=== PATIENT | male | born 1945 | race Caucasian/White ===

== ENCOUNTER 2022-09-11 09:46 | Outpatient (CLI) | payer MEDICARE, OTHER ==
[~2022-09-11] VITALS: Ht 172.7 cm; Wt 93.0 kg
[2022-09-11 10:26] LABS: BASOPHILS # (AUTO) 0.1 X10'3 (0-0.2); EOSINOPHILS # (AUTO) 0.1 X10'3 (0-0.9); HEMATOCRIT 39.6 % (42.0-52.0); LYMPHOCYTES # (AUTO) 1.4 X10'3 (1.1-4.8); LYMPHOCYTES % (AUTO) 19.4 % (21-51); MEAN CORPUSCULAR HGB CONC 32.8 g/dL (33.0-36.5); MEAN CORPUSCULAR VOLUME 91.4 FL (78-98); MEAN PLATELET VOLUME 7.7 FL (7.4-10.4); MONOCYTES # (AUTO) 0.5 X10'3 (0-0.9); MONOCYTES % (AUTO) 6.6 % (2-12); NEUTROPHILS # (AUTO) 5.2 X10'3 (1.8-7.7); PLATELET COUNT 216 X10'3 (140-440); RED BLOOD COUNT 4.34 X10'6 (4.70-6.10); RED CELL DISTRIBUTION WIDTH 15.2 % (11.5-14.5); WHITE BLOOD COUNT 7.3 X10'3 (4.5-11.0)
[2022-09-11 10:27] LABS: APTT 42 SECONDS (22-32)
[2022-09-11 10:29] LABS: ALANINE AMINOTRANSFERASE 21 U/L (12-78); ALBUMIN 3.9 G/DL (3.4-5.0); ALBUMIN/GLOBULIN RATIO 0.9 (1.1-1.5); ALKALINE PHOSPHATASE 135 IU/L (46-116); ASPARTATE AMINO TRANSFERASE 21 U/L (10-37); BILIRUBIN,TOTAL 0.6 MG/DL (0.1-1.0); BLOOD UREA NITROGEN 14 MG/DL (7-18); BUN/CREATININE RATIO 15.1 (5.4-32.0); CREATININE 0.93 MG/DL (0.60-1.10); GLUCOSE 157 MG/DL (70-104); TOTAL CARBON DIOXIDE 27.8 MMOL/L (24-32); TOTAL PROTEIN 8.4 G/DL (6.4-8.2); eGFR 79 ML/MIN
[2022-09-11] MEDS ORDERED: albuterol 2.5 MG/3 ML nebule NEB ONE (10:50)
[2022-09-11 10:53] LABS: ABG BASE EXCESS -0.2 mmol/L (-2.0-2.0); ABG HCO3 24.2 mmol/L (22.0-26.0); ABG OXYGEN SATURATION 95.5 % (94-97); ABG PCO2 (T) 38.8 mmHg (35.0-48.0); ABG PO2 (T) 78.4 mmHg (75.0-100.0); ALLEN'S TEST POSITIVE; FCOHb 5.8 % (0.0-3.9); FMetHb 0.3 % (0.0-1.5); FO2Hb 89.7 % (94-97); TOTAL HEMOGLOBIN 13.8 G/dl (14.0-17.9)
[2022-09-11 11:06] LABS: ANION GAP 9 (8-16); CHLORIDE 104 MMOL/L (99-107); POTASSIUM 4.4 MMOL/L (3.5-5.1); SODIUM 141 MMOL/L (135-145)
[2022-09-11] MEDS ORDERED: IODIXANOL 320 MG/ML INFUS..BTL 100ML IV ONE (11:50)
[2022-09-11] MEDS ORDERED: MESSAGE TO NURSING PO NR (12:16)
== END 2022-09-11 23:59 | disposition home or self-care (01) ==
LOC: RAD 09:46 → EDSEX 10:30 → RAD 23:59
PROVIDERS: ATTEND Internal Medicine Cardiovascular Disease
DX: Z01.818 Encounter for other preprocedural examination (principal); R94.2 Abnormal results of pulmonary function studies; I70.0 Atherosclerosis of aorta; K80.20 Calculus of gallbladder without cholecystitis without obstruction; I51.7 Cardiomegaly; J43.9 Emphysema, unspecified; J98.11 Atelectasis; J98.4 Other disorders of lung; Q25.46 Tortuous aortic arch; M48.14 Ankylosing hyperostosis [Forestier], thoracic region; M19.011 Primary osteoarthritis, right shoulder; M19.012 Primary osteoarthritis, left shoulder; I35.0 Nonrheumatic aortic (valve) stenosis; I65.29 Occlusion and stenosis of unspecified carotid artery; F17.210 Nicotine dependence, cigarettes, uncomplicated; Z79.899 Other long term (current) drug therapy
CPT/HCPCS: 36415; 36600; 71046; 71275; 74174; 80053; 82803; 85018; 85025; 85610; 85730; 94060; 94727; 94729; 94760; J3490; Q9967

== ENCOUNTER 2024-10-06 14:03 | Outpatient (CLI) | payer MEDICARE, OTHER ==
[~2024-10-06] VITALS: Ht 172.7 cm; Wt 97.5 kg
[~2024-10-06 14:03] MED LIST: APIX5TAB3 PO; ATOR20TA66 PO; CHOL100017 PO; CYAN100097 PO; GABA-1405 PO; LOSA25TA41 PO; METF-1203 PO; METO-384 PO
[2024-10-06 14:34] LABS: TOTAL HEMOGLOBIN 12.6 G/dl (13.5-17.5)
[2024-10-06] MEDS: albuterol 2.5 MG/3 ML nebule NEB ONE (15:08)
[2024-10-06 15:10] VITALS: PULSE 63; RESP 14; O2SAT 96
[2024-10-06 15:22] VITALS: PULSE 67; RESP 15
== END 2024-10-06 23:59 | disposition home or self-care (01) ==
LOC: RT 14:03
PROVIDERS: ATTEND Internal Medicine Pulmonary Disease
DX: J44.9 Chronic obstructive pulmonary disease, unspecified (principal)
CPT/HCPCS: 85018; 94060; 94727; 94729; 94760